=== PATIENT | female | born 1935 | race Caucasian/White ===

== ENCOUNTER 2017-12-15 10:29 | Day surgery (SDC) | payer MEDICARE ==
[~2017-12-15] VITALS: Ht 165.1 cm; Wt 73.6 kg
[2017-12-15 12:11] LABS: BASOPHILS 0.3 % (0-2); EOSINOPHILS 0.8 % (0-7); HEMATOCRIT 35.9 % (36.0-48.0); HEMOGLOBIN 11.5 g/dL (12-16); IMMATURE GRANULOCYTES 0.2 % (0-5); LYMPHOCYTES 26.5 % (15-50); MCH 28.7 pg (26.0-34.0); MCV 89.5 fL (80.0-100.0); MEAN PLATELET VOLUME 10.1 fL (7.4-10.4); MONOCYTES 4.2 % (2-11); PLATELET COUNT 233 10x3/uL (130-400); RBC 4.01 10x6/uL (4.00-5.40); RDW 13.9 % (11.5-14.5); WBC 5.9 10x3/uL (4.8-10.8)
[2017-12-15 12:22] LABS: ANION GAP 14.3 mmol/L (8-16); CALCIUM 9.5 mg/dL (8.5-10.1); CARBON DIOXIDE 25.4 mmol/L (21.0-32.0); POTASSIUM - SERUM 3.7 mmol/L (3.5-5.1)
[2017-12-15] MEDS ORDERED: ROPINIROLE HCL2 MG PO (21:06)
[2017-12-15] MEDS ORDERED: ZOLOFT100 MG PO (21:06)
[2017-12-15] MEDS ORDERED: BAYER CHEWABLE81 MG PO (21:07)
[2017-12-15] MEDS ORDERED: BUMETANIDE0.5 MG PO (21:07)
[2017-12-15] MEDS ORDERED: DETROL LA4 MG PO (21:07)
[2017-12-15] MEDS ORDERED: ULTRAM50 MG PO (21:08)
[2017-12-15 22:18] VITALS: BP 187/115
[2017-12-16 00:04] LABS: APPEARANCE CLOUDY (CLEAR); BILIRUBIN NEGATIVE (NEGATIVE); COLOR YELLOW (YELLOW); GLUCOSE NEGATIVE (NEGATIVE); KETONE NEGATIVE (NEGATIVE); NITRITE POSITIVE (NEGATIVE); PROTEIN 1+ mg/dL (NEGATIVE); UROBILINOGEN NORMAL (NORMAL)
[2017-12-16 00:07] LABS: BACTERIA MANY /hpf (NONE SEEN); EPITHELIAL CELLS 0-5 /hpf (0-5); RED CELLS - URINE NONE SEEN /hpf (0-5)
[2017-12-16 00:41] VITALS: Ht 165.1 cm; Wt 73.6 kg
[2017-12-16 04:29] VITALS: BP 161/98
[2017-12-16 09:16] VITALS: BP 135/80
== END 2017-12-16 16:26 | disposition home or self-care (01) ==
LOC: D.OPS 10:29 → D.MS 10:29 → D.ER 10:29 → EDSTATUS 13:45 → D.MS 19:37 → D.OPS 12-16 16:26
PROVIDERS: Emergency Medicine; Internal Medicine Gastroenterology
DX: K22.2 Esophageal obstruction (principal); K29.70 Gastritis, unspecified, without bleeding; K20.9 Esophagitis, unspecified; I10 Essential (primary) hypertension; K21.9 Gastro-esophageal reflux disease without esophagitis; Z01.812 Encounter for preprocedural laboratory examination; N39.0 Urinary tract infection, site not specified